=== PATIENT | male | born 1995 | race Caucasian/White ===

== ENCOUNTER 2019-06-26 23:54 | Emergency (ER) | payer OTHER ==
[2019-06-27] MEDS ORDERED: HYDROcodone/Acetaminophen 10/325 mg Tablet ONE (00:36)
[2019-06-27] MEDS ORDERED: Ibuprofen 800 MG TAB ONE (00:36)
--- NOTE | 2019-06-27 08:06 | RAD ---
LEFT ANKLE THREE VIEWS: History: Injury. Comparison: None FINDINGS: No acute fracture or malalignment. Soft tissues are unremarkable. IMPRESSION: No acute osseous abnormality. POS: CET
== END 2019-06-27 00:45 | disposition home or self-care (01) ==
LOC: SCSER 23:54
DX: S93.402A Sprain of unspecified ligament of left ankle, initial encounter (principal); Z85.828 Personal history of other malignant neoplasm of skin; X50.9XXA Other and unspecified overexertion or strenuous movements or postures, initial encounter